=== PATIENT | male | born 1995 | race Caucasian/White ===

== ENCOUNTER 2024-05-23 21:18 | Emergency (ER) | payer OTHER ==
[~2024-05-23] VITALS: Ht 180.3 cm; Wt 80.0 kg
[2024-05-23] MEDS ORDERED: LEVOTHYROXINE13 MCG (21:36)
[2024-05-23] MEDS ORDERED: DIPHTH,PERTUSS(ACELL),TET VAC 0.5 ML SYRINGE IM ONE (21:45)
[2024-05-23 22:58] VITALS: BP 149/86
== END 2024-05-23 23:01 | disposition home or self-care (01) ==
LOC: ED 21:18
DX: S61.412A Laceration without foreign body of left hand, initial encounter (principal); E07.9 Disorder of thyroid, unspecified; Z88.8 Allergy status to other drugs, medicaments and biological substances; Z79.890 Hormone replacement therapy; W22.8XXA Striking against or struck by other objects, initial encounter
CPT/HCPCS: 12001; 73130; 90471; 90715; 99283-25